=== PATIENT | male | born 1975 ===

== ENCOUNTER 2019-01-03 09:30 | Emergency (ER) | payer OTHER ==
--- NOTE | 2019-01-03 10:12 | EDM.PDOC ---
ED HPI GENERAL MEDICAL PROBLEM - General Chief Complaint: Skin Complaint Stated Complaint: ABSCESS ON LEG Time Seen by Provider: 01/03/19 10:12 Source of Information: Reports: Patient, RN Notes Reviewed - History of Present Illness INITIAL COMMENTS - FREE TEXT/NARRATIVE: 43-year-old male comes in with abscess left thigh. He states this only started about 4 days ago but I think what he means is that the pain only became intense about 4 days ago. He presents with very large abscess left thigh with surrounding erythema. 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 Aware of any particular injury. No fever chills. No abdominal pain nausea vomiting. No history of prior skin abscesses or infections. He is not known to be diabetic. Left Upper Thigh Pain Score (Numeric/FACES): 8 - Related Data Allergies Allergy/AdvReac Type Severity Reaction Status Date / Time Penicillins Allergy Swelling Verified 01/03/19 09:47 Home Meds: Home Meds . [No Known Home Meds] 01/03/19 [History] Past Medical History - Past Health History Medical/Surgical History: Denies Medical/Surgical History Social & Family History - Tobacco Use Smoking Status *Q: Never Smoker - Caffeine Use Caffeine Use: Reports: Coffee - Recreational Drug Use Recreational Drug Use: No ED ROS GENERAL - Review of Systems Review Of Systems: See Below Constitutional: Denies: Fever, Chills HEENT: Reports: No Symptoms Respiratory: Reports: No Symptoms Cardiovascular: Reports: No Symptoms GI/Abdominal: Reports: No Symptoms Musculoskeletal: Reports: Other (Large abscess with surrounding cellulitis left thigh) Skin: Reports: Erythema (Left thigh) ED EXAM, SKIN/RASH Exam: See Below General Appearance: Alert, No Apparent Distress Throat/Mouth: Normal Inspection Head: Atraumatic Neck: Supple Respiratory/Chest: No Respiratory Distress, Lungs Clear Cardiovascular: Tachycardia Extremities: Redness (Large area of erythema surrounding abscess left proximal medial thigh), Other (Large tender abscess that shows some evidence of prior drainage medial left thigh about 5 cm in diameter area of swelling tenderness) Skin: Warm, Dry, Erythema (Left thigh), Other (Skin is otherwise clear) Course - Vital Signs Last Recorded V/S: Last Vital Signs Temp 97.4 F 01/03/19 09:43 Pulse 105 H 01/03/19 09:43 Resp 20 01/03/19 09:43 BP 136/97 H 01/03/19 09:43 Pulse Ox 99 01/03/19 09:43 - Orders/Labs/Meds Orders: Active Orders 24 hr Category Date Time Status Peripheral IV Care [RC] . DIRECTED Care 01/03/19 10:24 Active Sodium Chloride 0.9% [Saline Flush] Med 01/03/19 10:24 Active 10 ml FLUSH ASDIRECTED PRN Peripheral IV Insertion Adult [OM.PC] Stat Oth 01/03/19 10:23 Ordered Medication Orders Sodium Chloride (Saline Flush) 10 ml FLUSH ASDIRECTED PRN PRN Reason: Keep Vein Open Last Admin: 01/03/19 10:37 Dose: 10 ml Labs: Laboratory Tests 01/03/19 01/03/19 Range/Units 10:30 10:30 WBC 18.55 H (4.23-9.07) K/mm3 RBC 4.85 (4.63-6.08) M/mm3 Hgb 14.7 (13.7-17.5) gm/dl Hct 42.6 (40.1-51.0) % MCV 87.8 (79.0-92.2) fl MCH 30.3 (25.7-32.2) pg MCHC 34.5 (32.2-35.5) g/dl RDW Std Deviation 40.9 (35.1-43.9) fL Plt Count 415 H (163-337) K/mm3 MPV 8.7 L (9.4-12.3) fl Neut % (Auto) 80.4 H (34.0-67.9) % Lymph % (Auto) 6.8 L (21.8-53.1) % [place] % (Auto) 12.0 (5.3-12.2) % Eos % (Auto) 0.3 L (0.8-7.0) Baso % (Auto) 0.1 (0.1-1.2) % Neut # (Auto) 14.90 H (1.78-5.38) K/mm3 Lymph # (Auto) 1.26 L (1.32-3.57) K/mm3 [place] # (Auto) 2.23 H (0.30-0.82) K/mm3 Eos # (Auto) 0.06 (0.04-0.54) K/mm3 Baso # (Auto) 0.02 (0.01-0.08) K/mm3 Manual Slide Review Abnormal smear Sodium 133 L (136-145) mEq/L Potassium 4.1 (3.5-5.1) mEq/L Chloride 98 (98-107) mEq/L Carbon Dioxide 23 (21-32) mEq/L Anion Gap 16.1 H (5-15) BUN 18 (7-18) mg/dL Creatinine 0.9 (0.7-1.3) mg/dL Est Cr Clr Drug Dosing 104.50 mL/min Estimated GFR (MDRD) > 60 (>60) mL/min BUN/Creatinine Ratio 20.0 H (14-18) Glucose 99 (74-106) mg/dL Calcium 9.3 (8.5-10.1) mg/dL Total Bilirubin 1.3 H (0.2-1.0) mg/dL AST 18 (15-37) U/L ALT 47 (16-63) U/L Alkaline Phosphatase 112 (46-116) U/L Total Protein 8.2 (6.4-8.2) g/dl Albumin 3.5 (3.4-5.0) g/dl Globulin 4.7 gm/dL Albumin/Globulin Ratio 0.7 L (1-2) Meds: Medications Generic Name Dose Route Start Last Admin Trade Name Freq PRN Reason Stop Dose Admin Sodium Chloride 10 ml 01/03/19 10:24 01/03/19 10:37 Saline Flush FLUSH 10 ml ASDIRECTED PRN Administration Keep Vein Open Discontinued Medications Generic Name Dose Route Start Last Admin Trade Name Freq PRN Reason Stop Dose Admin Doxycycline Hyclate 200 mg 01/03/19 13:53 01/03/19 14:11 Vibramycin PO 01/03/19 13:54 200 mg ONETIME ONE Administration Hydromorphone HCl 0.5 mg 01/03/19 10:24 01/03/19 10:36 Dilaudid IVPUSH 01/03/19 10:25 0.5 mg ONETIME ONE Administration Vancomycin HCl 1.5 gm/ Sodium 500 mls @ 250 mls/hr 01/03/19 10:27 01/03/19 11 :08 Chloride IV 01/03/19 10:28 250 mls/hr ONETIME ONE Administration Lidocaine HCl 50 ml 01/03/19 13:35 01/03/19 13:41 Xylocaine 1% INJECT 01/03/19 13:36 50 ml ONETIME ONE Administration Lorazepam 0.5 mg 01/03/19 10:24 01/03/19 10:37 Ativan IVPUSH 01/03/19 10:25 0.5 mg ONETIME ONE Administration - Re-Assessments/Exams Free Text/Narrative Re-Assessment/Exam: 01/03/19 14:54 Due to severity of surrounding cellulitis patient was given vancomycin 1.5 g IV while here in the ED. Abscess was opened and drained with a lot of purulent drainage as expected. This was then packed with some iodoform gauze. He was also given doxycycline 200 mg orally. He is instructed to continue on doxycycline 200 mg twice a day for 1 week. Vancomycin and 01.5 g twice a day for 4 days. This will be done outpatient through the hospital. Discharge instructions as documented. Departure - Departure Time of Disposition: 14:10 Disposition: Home, Self-Care 01 Condition: Fair Clinical Impression: Abscess Cellulitis Qualifiers: Site of cellulitis: extremity Site of cellulitis of extremity: lower extremity Laterality: left Qualified Code(s): L03.116 - Cellulitis of left lower limb - Discharge Information Instructions: Skin Abscess, [id number], Cellulitis, Adult, [id number] Referrals: PCP,None [Primary Care Provider] - Forms: ED Department Discharge, ED Return to Work/School Form Additional Instructions: Doxycycline antibiotic 200 mg twice daily. Your next dose should be this evening toward bedtime. Return to ED around 9 PM this evening and than continue that twice daily for the next 3 days. We will also change the packing in the wound q 12 to 24 hr. We will plan for IV antibiotics for the next 4 days, oral antibiotics for 10 days. No work the remainder of this week. - My Orders Last 24 Hours: My Active Orders 01/03/19 10:23 Peripheral IV Insertion Adult [OM.PC] Stat 01/03/19 10:24 Peripheral IV Care [RC] . DIRECTED Sodium Chloride 0.9% [Saline Flush] 10 ml FLUSH ASDIRECTED PRN - Assessment/Plan Last 24 Hours: My Active Orders 01/03/19 10:23 Peripheral IV Insertion Adult [OM.PC] Stat 01/03/19 10:24 Peripheral IV Care [RC] . DIRECTED Sodium Chloride 0.9% [Saline Flush] 10 ml FLUSH ASDIRECTED PRN
[2019-01-03] MEDS ORDERED: Sodium Chloride 0.9% 10 ML Syringe FLUSH PRN (10:24)
[2019-01-03] MEDS ORDERED: HYDROmorphone 0.5 MG/0.5 ML Syringe IVPUSH ONE (10:24)
[2019-01-03] MEDS ORDERED: LORazepam 2 MG/ML SDV IVPUSH ONE (10:24)
[2019-01-03] MEDS ORDERED: Vancomycin 1.5 GM in Sodium Chloride 0.9% 500 ML IV ONE (10:27)
[2019-01-03] MEDS ORDERED: Lidocaine 1% 50 ML MDV INJECT ONE (13:35)
[2019-01-03] MEDS ORDERED: Doxycycline 100 MG Cap PO ONE (13:53)
== END 2019-01-03 14:35 | disposition home or self-care (01) ==
LOC: JD.ED 09:30
DX: L03.116 Cellulitis of left lower limb (principal); Z88.0 Allergy status to penicillin
CPT/HCPCS: 10061; 36415; 80053; 85025; 96365; 96366; 96375; 99283; A9270; J1170; J2001; J2060; J3370; J7040